=== PATIENT | male | born 1980 | race Caucasian/White ===

== ENCOUNTER 2020-01-29 06:12 | Emergency (ER) | payer OTHER, SELFPAY ==
[~2020-01-29] VITALS: Ht 188 cm; Wt 74.0 kg
--- NOTE | 2020-01-29 06:50 | NUR ---
Patient presents to ER c/o ETOH withdrawal. Patient's last drink was yesterday (one shot) just to help stop the shakes. Prior to that, his last normal amount of alcohol was on Tuesday. Patient has states he has never been sober for any extent of time. Patient is tremulous and appears anxious. Respirations even and unlabored.
[2020-01-29] MEDS ORDERED: SODIUM CHLORIDE 0.9% 1,000ML IVBOLUS ONE (07:00)
[2020-01-29] MEDS ORDERED: SODIUM CHLORIDE FLUSH 10ML SYR IVF ONE (07:00)
[2020-01-29] MEDS ORDERED: ONDANSETRON 2MG/ML, 2ML IVPush ONE (07:00)
[2020-01-29] MEDS ORDERED: LORazepam 2 MG/ML, 1ML IVPush PRN (07:00)
[2020-01-29] MEDS ORDERED: LORazepam 2 MG/ML, 1ML IVPush ONE (07:00)
[2020-01-29] MEDS ORDERED: MAGNESIUM SULFATE 1 GM, THIAMINE 100 MG, FOLIC ACID 1 MG, MVI ADULT 10 ML in SODIUM CHL... IV ONE (07:00)
[2020-01-29 07:10] LABS: CULTURE INDICATED? YES; MICROSCOPIC INDICATED
[2020-01-29 07:14] LABS: BASOPHILS # (AUTO) 0.02 x10^3/uL (0-0.1); BASOPHILS % (AUTO) 0 % (0-1); EOSINOPHILS % (AUTO) 0 % (1-7); LYMPHOCYTES # (AUTO) 0.71 x10^3/uL (1-3.4); LYMPHOCYTES % (AUTO) 6 % (22-44); MD NO; MEAN CORPUSCULAR HEMOGLOBIN 32.1 pg (27.5-34.5); MEAN CORPUSCULAR HGB CONC 33.8 g/dL (33.2-36.2); MEAN CORPUSCULAR VOLUME 95.1 fL (81-97); MEAN PLATELET VOLUME 7.9 fL (7.4-10.4); MONOCYTES # (AUTO) 0.53 x10^3/uL (0.2-0.8); MONOCYTES % (AUTO) 5 % (2-9); NEUTROPHILS # (AUTO) 10.05 x10^3/uL (1.8-6.8); NEUTROPHILS % (AUTO) 89 % (42-75); PLATELET COUNT 191 x10^3/uL (130-400); RED CELL DISTRIBUTION WIDTH 13.6 % (9.4-14.8)
--- NOTE | 2020-01-29 07:15 | NUR ---
Report received. Pt resting in bed. IV started, IVF infusing. Pt is currently refusing ativan dose, states he wants to "Wait until after 9am because he has an important phone call with cps he needs to make." Pt explained reason ativan was ordered, ETOH detox, pt still refusing. ERMD aware, states will speak with pt. Pt on cardiac monitors. Cont to monitor.
[2020-01-29 07:26] LABS: ALANINE AMINOTRANSFERASE 75 U/L (12-78); ALBUMIN 4.1 g/dL (3.4-5.0); ANION GAP 10 mmol/L (5-15); CALCIUM 9.6 mg/dL (8.5-10.1); CHLORIDE 97 mmol/L (98-107); CREATININE 0.97 mg/dL (0.7-1.3)
[2020-01-29] MEDS ORDERED: LORazepam 2 MG/ML, 1ML ONE (07:27)
[2020-01-29 07:28] LABS: ALKALINE PHOSPHATASE 107 U/L (45-117); BILIRUBIN,TOTAL 1.4 mg/dL (0.2-1.0); TOTAL PROTEIN 7.6 g/dL (6.4-8.2)
[2020-01-29] MEDS ORDERED: ONDANSETRON 2MG/ML, 2ML ONE (07:40)
--- NOTE | 2020-01-29 07:46 | NUR ---
Pt spoke with YANIRA. Pt agrees to ativan 1mg IV. Pt medicated per orders. Remains on monitors. Cont to monitor.
--- NOTE | 2020-01-29 09:03 | NUR ---
Pt resting in bed, no distress. Remains on monitors. Pt states he is feeling better. Cont to monitor.
--- NOTE | 2020-01-29 09:41 | NUR ---
Malvin called, awaitng call back from Admitting RN.
[2020-01-29] MEDS ORDERED: LORazepam 1MG TABLET PO ONE (10:00)
[2020-01-29] MEDS ORDERED: LORazepam 1MG TABLET ONE (10:14)
--- NOTE | 2020-01-29 10:30 | NUR ---
Spoke with admitting FABIAN Ott at [facility]. Pt ok to go for assessment. Pt aware of plan of care, agrees to [facility] assessment. Pt medically cleared by ERMD. Pt with minimal tremors at this point, able to care for self, steady gait upon D/C. Pt given taxi voucher to [facility]. Pt has all own belongings upon d/c.
[2020-01-29 10:32] VITALS: BP 123/76
== END 2020-01-29 10:34 ==
LOC: ED 10:28
DX: F10.239 Alcohol dependence with withdrawal, unspecified (principal); I48.91 Unspecified atrial fibrillation; R94.31 Abnormal electrocardiogram [ECG] [EKG]; Y90.9 Presence of alcohol in blood, level not specified
CPT/HCPCS: 36415; 80053; 80307; 81001; 83735; 85025; 87077; 87086; 93005; 96365; 96366; 96375; 99285; J2060; J2405; J3411; J3475; J7030; 99284

== ENCOUNTER 2020-12-08 15:28 | Emergency (ER) | payer OTHER ==
[~2020-12-08] VITALS: Ht 185.4 cm; Wt 76.3 kg
--- NOTE | 2020-12-08 16:39 | NUR ---
[employer]PER[employer]OR: PT TO ROOM FROM LOBBY
[2020-12-08 17:04] LABS: ALBUMIN 4.1 g/dL (3.4-5.0); ANION GAP 5 mmol/L (5-15); CALCIUM 9.3 mg/dL (8.5-10.1); CHLORIDE 105 mmol/L (98-107)
[2020-12-08 17:08] LABS: ALANINE AMINOTRANSFERASE 70 U/L (12-78); ALKALINE PHOSPHATASE 94 U/L (45-117); BILIRUBIN,TOTAL 0.3 mg/dL (0.2-1.0); TOTAL PROTEIN 7.7 g/dL (6.4-8.2)
[2020-12-08 17:12] LABS: MICROSCOPIC NOT IND
[2020-12-08 17:24] LABS: BASOPHILS % (AUTO) 1 % (0-1); EOSINOPHILS % (AUTO) 1 % (1-7); LYMPHOCYTES % (AUTO) 18 % (22-44); MEAN CORPUSCULAR HEMOGLOBIN 31.2 pg (27.5-34.5); MEAN CORPUSCULAR HGB CONC 34.1 g/dL (33.2-36.2); MEAN PLATELET VOLUME 8.6 fL (7.4-10.4); MONOCYTES % (AUTO) 7 % (2-9); NEUTROPHILS % (AUTO) 74 % (42-75); PLATELET COUNT 258 x10^3/uL (130-400); RED BLOOD COUNT 5.64 x10^6/uL (4.38-5.82); RED CELL DISTRIBUTION WIDTH 12.9 % (9.4-14.8)
[2020-12-08 17:26] LABS: MD NO
--- NOTE | 2020-12-08 18:17 | NUR ---
pt to bathroom
[2020-12-08 19:13] LABS: CLOSTRIDIUM DIFFICILE ANTIGEN POSITIVE; CLOSTRIDIUM DIFFICILE TOXIN POSITIVE (Negative)
[2020-12-08] MEDS ORDERED: VANCOMYCIN 50 MG/ML ORAL SUSP PO ONE (19:30)
[2020-12-08 20:26] VITALS: BP 129/96
== END 2020-12-08 20:43 | disposition home or self-care (01) ==
LOC: ED 20:15
DX: A04.72 Enterocolitis due to Clostridium difficile, not specified as recurrent (principal); R00.0 Tachycardia, unspecified
CPT/HCPCS: 36415; 80053; 81003; 85025; 87324; 99283; J3370